=== PATIENT | female | born 1940 | race Caucasian/White ===

== ENCOUNTER 2017-09-30 10:20 | Inpatient (IN) | payer MEDICARE ==
[~2017-09-30] VITALS: Ht 177.8 cm; Wt 87.7 kg
[2017-09-30] VITALS (12 sets, daily range): BP systolic 103–157; BP diastolic 67–90; PULSE 107–130; RESP 14–20; TEMP 99.2–99.8; O2SAT 90–96
[~2017-09-30 10:20] MED LIST: APIX5TAB PO; CARD180C5 PO; CIPR-9 PO; HYDR-3516 PO; METF500T PO; METR-1 PO; PAXI20TA PO; SITA50 PO
--- NOTE | 2017-09-30 10:38 | PD ---
HPI Chief Complaint: Respiratory Symptoms Time Seen by Provider: 10:36 Travel History International Travel<30 days: No Contact w/Intl Traveler<30days: No Traveled to known affect area: No History of Present Illness HPI 76-year-old female is complaining of in the nose and cough. She says is quite a severe cough at times she also says she been having tightness in her chest off and on for several days. It is substernal chest tightness that comes on even when she is not coughing. She does have a history of pleurisy. She has never smoked. She had a nonproductive cough on Saturday and Saturday. She does have a history of atrial fib has seen Dr. Finch in the past. She is on Eliquis and takes Cardizem 180 daily though she did not take it today because she was a bit nauseated this morning PFSH Past Medical History Arthritis: Yes Atrial Fibrillation: Yes Autoimmune Disease: No Blood Disorders: No Anxiety: Yes Depression: Yes Cancer: Yes (SUDARSHAN BREAST--MASTECTOMIES AND CHEMO AFTER ) Cardiovascular Problems: Yes (ATRIAL FIBRILLATION) Chemotherapy: Yes ( & ) Cerebrovascular Accident: Yes Diabetes: Yes (TYPE II) Diminished Hearing: No Endocrine: Yes Genitourinary: No Hepatitis: No Hiatal Hernia: No Hypertension: Yes Immune Disorder: No Musculoskeletal: Yes (ARTHRITIS) Neurologic: Yes (S/P STROKE, RESID. NUMBNESS RIGHT FINGER TIPS, RIGHT LIP CORNER) Psychiatric: No Reproductive: No Respiratory: No Thyroid Disease: No Past Surgical History Abdominal Surgery: No AICD: No Cardiac Surgery: No Ear Surgery: No Endocrine Surgery: No Eye Surgery: No Genitourinary Surgery: No Gynecologic Surgery: Yes (HYSTERECTOMY 1982) Hysterectomy: Yes Joint Replacement: Yes (KNEES) Oral Surgery: No Pacemaker: No Thoracic Surgery: Yes (BILATERAL MASTECTOMIES 1990,1997) Other Surgery: Yes (BILATERAL MASTECTOMY) Social History Alcohol Use: No Tobacco Use: No Substance Use: No Allergies-Medications (Allergen,Severity, Reaction): Coded Allergies: penicillin G (Verified Allergy, Severe, RASH, 09/30/17) celecoxib (Verified Allergy, Mild, Swelling, 09/30/17) rofecoxib (Verified Allergy, Mild, SWELLING AND RASH, 09/30/17) warfarin (Verified Allergy, Unknown, RASH, 4/16/18) Reported Meds & Prescriptions Reported Meds & Active Scripts Active Cardizem CD 24 HR (Diltiazem CD 24 HR) 180 Mg Caper 180 Mg PO DAILY Reported Lasix (Furosemide) 20 Mg Tab 20 Mg PO DAILY PRN Paroxetine (Paroxetine HCl) 20 Mg Tab 20 Mg PO DAILY Metformin (Metformin HCl) 500 Mg Tab 500 Mg PO BID With a meal Januvia (Sitagliptin Phosphate) Unknown Strength Tab 100 Mg PO DAILY Eliquis (Apixaban) 5 Mg Tab 5 Mg PO BID Review of Systems General / Constitutional: No: Fever, Chills Eyes: No: Diploplia, Blurred Vision HENT: No: Headaches, Vertigo Cardiovascular: Positive: Chest Pain or Discomfort, No: Palpitations Respiratory: Positive: Cough, Shortness of Breath Gastrointestinal: No: Vomiting, Diarrhea Genitourinary: No: Urgency, Frequency Musculoskeletal: No: Myalgias Skin: No Rash Neurologic: No: Dizziness Endocrine: No: Heat Intolerance, Cold Intolerance Hematologic/Lymphatic: No: Easy Bruising Physical Exam Narrative GENERAL: Well-developed female. Heart rate is 140 and irregular SKIN: Focused skin assessment warm/dry. HEAD: Atraumatic. Normocephalic. EYES: Pupils equal and round. No scleral icterus. No injection or drainage. ENT: No nasal bleeding or discharge. Mucous membranes pink and moist. NECK: Trachea midline. No JVD. CARDIOVASCULAR: Rapid irregularrate and rhythm. No murmur appreciated. RESPIRATORY: No accessory muscle use. There are some basal rales. Breath sounds equal bilaterally. GASTROINTESTINAL: Abdomen soft, non-tender, nondistended. Hepatic and splenic margins not palpable. MUSCULOSKELETAL: No obvious deformities. No clubbing. No cyanosis. No edema. NEUROLOGICAL: Awake and alert. No obvious cranial nerve deficits. Motor grossly within normal limits. Normal speech. PSYCHIATRIC: Appropriate mood and affect; insight and judgment normal. Data Data Last Documented VS Vital Signs Date Time Temp Pulse Resp B/P (MAP) Pulse Ox O2 Delivery O2 Flow Rate FiO2 09/30/17 11:35 130 18 134/84 (101) 95 Nasal Cannula 2.00 09/30/17 10:23 99.8 Orders Orders Electrocardiogram (09/30/17 10:36) Complete Blood Count With Diff (09/30/17 10:36) Basic Metabolic Panel (Bmp) (4/16/18 10:36) Troponin I (09/30/17 10:36) B-Type Natriuretic Peptide (09/30/17 10:36) Prothrombin Time / Inr (Pt) (09/30/17 10:36) Act Partial Throm Time (Ptt) (09/30/17 10:36) Urinalysis - C+S If Indicated (09/30/17 10:36) Magnesium (Mg) (09/30/17 10:36) Chest, Single Ap (09/30/17 10:36) Furosemide Inj (Lasix Inj) (09/30/17 11:45) Diltiazem Inj (Cardizem Inj) (09/30/17 11:45) Diltiazem Inj (Cardizem Inj) (09/30/17 11:45) Sodium Chloride 0.9% Flush (Ns Flush) (09/30/17 11:45) Labs Laboratory Tests Test 09/30/17 10:55 White Blood Count 5.5 TH/MM3 Red Blood Count 4.95 MIL/MM3 Hemoglobin 14.0 GM/DL Hematocrit 42.8 % Mean Corpuscular Volume 86.6 FL Mean Corpuscular Hemoglobin 28.3 PG Mean Corpuscular Hemoglobin Concent 32.7 % Red Cell Distribution Width 13.2 % Platelet Count 177 TH/MM3 Mean Platelet Volume 9.2 FL Neutrophils (%) (Auto) 67.7 % Lymphocytes (%) (Auto) 21.6 % Monocytes (%) (Auto) 7.5 % Eosinophils (%) (Auto) 0.6 % Basophils (%) (Auto) 2.6 % Neutrophils # (Auto) 3.8 TH/MM3 Lymphocytes # (Auto) 1.2 TH/MM3 Monocytes # (Auto) 0.4 TH/MM3 Eosinophils # (Auto) 0.0 TH/MM3 Basophils # (Auto) 0.1 TH/MM3 CBC Comment DIFF FINAL Differential Comment Prothrombin Time 11.4 SEC Prothromb Time International Ratio 1.1 RATIO Activated Partial Thromboplast Time 32.0 SEC Blood Urea Nitrogen 11 MG/DL Creatinine 0.80 MG/DL Random Glucose 140 MG/DL Calcium Level 8.4 MG/DL Magnesium Level 2.0 MG/DL Sodium Level 133 MEQ/L Potassium Level 4.3 MEQ/L Chloride Level 100 MEQ/L Carbon Dioxide Level 24.6 MEQ/L Anion Gap 8 MEQ/L Estimat Glomerular Filtration Rate 70 ML/MIN Troponin I 0.04 NG/ML B-Type Natriuretic Peptide 507 PG/ML MDM Medical Decision Making Medical Screen Exam Complete: Yes Emergency Medical Condition: Yes Medical Record Reviewed: Yes Differential Diagnosis Differential includes bronchitis, pneumonia, CHF Narrative Course BNP Is 507. The troponin is 0.04. Her heart rate has been sustained around 140 -150. She was given [facility] CD but it has normal affect. I have discussed the case with Dr. Finch. He recommends the patient be transferred to the main campus on the [facility] drip Diagnosis Primary Impression: Rapid atrial fibrillation Additional Impression: Congestive heart failure Admitting Information Admitting Physician Requests: Admit Anam Barrios MD Sep 30, 2017 10:38
[2017-09-30] MEDS ORDERED: FURO1TAB62 PO (10:45)
[2017-09-30] MEDS ORDERED: PARO20TA2 PO (10:45)
[2017-09-30 11:07] LABS: AUTOMATED NEUTROPHIL # 3.8 TH/MM3 (1.8-7.7); BASOPHIL # 0.1 TH/MM3 (0-0.2); BASOPHIL % 2.6 % (0.0-2.0); EOSINOPHIL % 0.6 % (0.0-4.0); HEMATOCRIT 42.8 % (35.0-46.0); LYMPH % 21.6 % (9.0-44.0); LYMPHOCYTE # 1.2 TH/MM3 (1.0-4.8); MEAN CELL VOLUME 86.6 FL (80.0-100.0); MEAN CORPUSCULAR HEMOGLOBIN 28.3 PG (27.0-34.0); MEAN CORPUSCULAR HGB CONC 32.7 % (32.0-36.0); MEAN PLATELET VOLUME 9.2 FL (7.0-11.0); MONO % 7.5 % (0.0-8.0); MONOCYTE # 0.4 TH/MM3 (0-0.9); NEUT % 67.7 % (16.0-70.0); PLATELET COUNT 177 TH/MM3 (150-450); RED BLOOD COUNT 4.95 MIL/MM3 (4.00-5.30); RED CELL DISTRIBUTION WIDTH 13.2 % (11.6-17.2); WHITE BLOOD COUNT 5.5 TH/MM3 (4.0-11.0)
[2017-09-30 11:17] LABS: INTERNATIONAL NORMALIZED RATIO 1.1 RATIO; PROTHROMBIN TIME - PATIENT 11.4 SEC (9.8-11.6)
[2017-09-30 11:18] LABS: BICARBONATE 24.6 MEQ/L (21.0-32.0); CALCIUM 8.4 MG/DL (8.5-10.1)
--- NOTE | 2017-09-30 11:21 | RADRPT ---
EXAM DATE/TIME: 09/30/2017 10:43 [facility] COMPARISON: CHEST SINGLE AP, April 26, 2016, 17:37. INDICATIONS : Cough MEDICAL HISTORY : Hypertension. SURGICAL HISTORY : None. ENCOUNTER: Initial ACUITY: 1 day PAIN SCORE: 0/10 LOCATION: chest FINDINGS: There is cardiomegaly with moderate interstitial edema and bibasilar partial changes suspicious for c ongestive failure. Superimposed inflammatory process cannot be entirely excluded. CONCLUSION: Moderate interstitial edema likely congestive failure. Markus Mittal MD FACR on September 30, 2017 at 11:19 Board Certified Radiologist. This report was verified electronically.
[2017-09-30 11:22] LABS: CREATININE 0.8 MG/DL (0.50-1.00)
[2017-09-30 11:27] LABS: TROPONIN I 0.04 NG/ML (0.02-0.05)
[2017-09-30] MEDS ORDERED: SODIUM CHLORIDE 0.9% FLUSH 10 ML FLUSH IV FLUSH PRN ×2 (11:45→12:30)
[2017-09-30] MEDS ORDERED: DILTIAZEM HCL 25 MG/5 ML VIAL IV PUSH ONE (11:45)
[2017-09-30] MEDS ORDERED: DILTIAZEM INJ 125 MG in SODIUM CHLORIDE 0.9% INJ 100 ML IV PRN (11:45)
[2017-09-30] MEDS ORDERED: FUROSEMIDE 20 MG/2 ML VIAL IV PUSH ONE ×2 (11:45→15:30)
[2017-09-30] MEDS ORDERED: NALOXONE HCL 0.4 MG/ML AMP IV PUSH PRN (12:30)
[2017-09-30] MEDS ORDERED: ACETAMINOPHEN 325 MG TAB PO PRN (12:30)
[2017-09-30] MEDS ORDERED: ONDANSETRON HCL 4 MG/2 ML VIAL IVP PRN (12:30)
[2017-09-30] MEDS ORDERED: MAGNESIUM HYDROXIDE SUSP 30 ML CUP PO PRN (12:30)
--- NOTE | 2017-09-30 15:11 | HHI.HP ---
[facility] Jim Alva MD Admission Diagnosis RAPID ATRIAL FIBRILLATION, CHF Diagnoses: (1) Rapid atrial fibrillation (2) Congestive heart failure (3) Atrial fibrillation with RVR Chief Complaint: Nonproductive cough Shortness of breath Travel History International Travel<30 Days: No Contact w/Intl Traveler <30 Da: No Traveled to Known Affected Are: No History of Present Illness This is a pleasant 76-year-old female patient with a known medical history of atrial fibrillation who presented to the ED with complaints of cough and worsening shortness of breath 2 weeks. Patient states that roughly 2 weeks ago she developed a nonproductive cough with intermittent tightness in her chest. Patient states that she noticed tightness in her chest after her cough, states she began to feel better after a week and now has continued. She denies any recent illness including fever, chills, abdominal pain, nausea, vomiting, diarrhea dysuria. She denies any history or current tobacco use. Denies any recent antibiotic use or steroids. Does admit to decrease in appetite. Follows with Dr. Finch, cardiology, for her atrial fibrillation. She is on Eliquis and Cardizem which she took this morning. Patient denies any recent echocardiogram. PCP is Dr. Alva. At the time of assessment patient is requiring 4 L nasal cannula, is on a Cardizem IV drip for atrial fibrillation RVR, heart rate 120s. BNP 507. Denies any history of pulmonary disease. Review of Systems Constitutional: DENIES: Fatigue, Fever, Chills Eyes: DENIES: Blurred vision, Diplopia Respiratory: COMPLAINS OF: Cough, Shortness of breath, DENIES: Sputum production Cardiovascular: DENIES: Chest pain, Palpitations Gastrointestinal: DENIES: Abdominal pain, Black stools, Bloody stools, Constipation, Diarrhea, Nausea, Vomiting Musculoskeletal: DENIES: Joint pain Hematologic/lymphatic: DENIES: Bruising Psychiatric: COMPLAINS OF: Anxiety Except as stated in HPI: all other systems reviewed are Neg Past Family Social History Past Medical History History of atrial fibrillation Arthritis Anxiety and depression History of breast cancer with bilateral mastectomy History of CVA Diabetes type 2 Hypertension Past Surgical History Hysterectomy Bilateral knee replacement Bilateral vasectomy Left shoulder repair Cholecystectomy Reported Medications Active Cardizem CD 24 HR (Diltiazem CD 24 HR) 180 Mg Caper 180 Mg PO DAILY Reported Lasix (Furosemide) 20 Mg Tab 20 Mg PO DAILY PRN Paroxetine (Paroxetine HCl) 20 Mg Tab 20 Mg PO DAILY Metformin (Metformin HCl) 500 Mg Tab 500 Mg PO BID With a meal Januvia (Sitagliptin Phosphate) Unknown Strength Tab 100 Mg PO DAILY Eliquis (Apixaban) 5 Mg Tab 5 Mg PO BID Allergies: Coded Allergies: penicillin G (Verified Allergy, Severe, RASH, 09/30/17) celecoxib (Verified Allergy, Mild, Swelling, 09/30/17) rofecoxib (Verified Allergy, Mild, SWELLING AND RASH, 09/30/17) warfarin (Verified Allergy, Unknown, RASH, 09/30/17) Active Ordered Medications Current Medications Medications (Trade) Dose Ordered Sig/Kari Route Start Time Stop Time Status Last Admin Diltiazem HCl 125 mg/Sodium Chloride 125 ml @ 5 mls/hr TITRATE PRN IV 09/30/17 11:45 09/30/17 11:59 (NS Flush) 2 ml UNSCH PRN IV FLUSH 09/30/17 12:30 (NS Flush) 2 ml BID IV FLUSH 09/30/17 21:00 (Tylenol) 650 mg Q4H PRN PO 09/30/17 12:30 (Zofran Inj) 4 mg Q6H PRN IVP 09/30/17 12:30 (Narcan Inj) 0.4 mg UNSCH PRN IV PUSH 09/30/17 12:30 (Milk Of Magnesia Liq) 30 ml Q12H PRN PO 09/30/17 12:30 Family History Paternal medical history significant for CHF and diabetes. Social History Patient denies any tobacco use, alcohol use. Or illicit drug use. Physical Exam Vital Signs Vital Signs Date Time Temp Pulse Resp B/P (MAP) Pulse Ox O2 Delivery O2 Flow Rate FiO2 09/30/17 14:00 126 18 144/68 (93) 95 Nasal Cannula 2.00 09/30/17 13:30 130 18 156/67 (96) 94 Nasal Cannula 2.00 09/30/17 13:00 116 18 142/76 (98) 95 Nasal Cannula 4.00 09/30/17 13:00 114 16 95 Nasal Cannula 4.00 09/30/17 12:30 128 18 149/86 (107) 96 Nasal Cannula 2.00 09/30/17 12:00 122 18 133/74 (93) 93 Nasal Cannula 2.00 09/30/17 11:59 123 133/74 09/30/17 11:35 130 18 134/84 (101) 95 Nasal Cannula 2.00 09/30/17 11:15 94 Nasal Cannula 2.00 09/30/17 11:00 132 18 92 Room Air 09/30/17 10:23 151/90 (110) 09/30/17 10:23 99.8 118 16 90 Physical Exam GENERAL: Well-developed, well-nourished patient in NAD. On supplemental O2. SKIN: Warm and dry. No rash. HEAD: Normocephalic. Atraumatic. EYES: Pupils equal and round. No scleral icterus. No injection or drainage. ENT: No nasal bleeding or discharge. Mucous membranes pink and moist. NECK: Supple. Trachea midline. CARDIOVASCULAR: Irregularly irregular rhythm. RESPIRATORY: No accessory muscle use. Diminished breath sounds posterior lower lobes. Breath sounds equal bilaterally. GASTROINTESTINAL: Abdomen soft, non-tender, nondistended. Normoactive bowel sounds x4. MUSCULOSKELETAL: No obvious deformities. Extremities without clubbing, cyanosis , or edema. NEUROLOGICAL: Awake and alert. No obvious cranial nerve deficits. Motor grossly within normal limits. 5/5 muscle strength in bilateral upper and lower extremities. Normal speech. PSYCHIATRIC: Appropriate mood and affect; insight and judgment normal. Laboratory Laboratory Tests Test 09/30/17 10:55 White Blood Count 5.5 Red Blood Count 4.95 Hemoglobin 14.0 Hematocrit 42.8 Mean Corpuscular Volume 86.6 Mean Corpuscular Hemoglobin 28.3 Mean Corpuscular Hemoglobin Concent 32.7 Red Cell Distribution Width 13.2 Platelet Count 177 Mean Platelet Volume 9.2 Neutrophils (%) (Auto) 67.7 Lymphocytes (%) (Auto) 21.6 Monocytes (%) (Auto) 7.5 Eosinophils (%) (Auto) 0.6 Basophils (%) (Auto) 2.6 Neutrophils # (Auto) 3.8 Lymphocytes # (Auto) 1.2 Monocytes # (Auto) 0.4 Eosinophils # (Auto) 0.0 Basophils # (Auto) 0.1 CBC Comment DIFF FINAL Differential Comment Prothrombin Time 11.4 Prothromb Time International Ratio 1.1 Activated Partial Thromboplast Time 32.0 Blood Urea Nitrogen 11 Creatinine 0.80 Random Glucose 140 Calcium Level 8.4 Magnesium Level 2.0 Sodium Level 133 Potassium Level 4.3 Chloride Level 100 Carbon Dioxide Level 24.6 Anion Gap 8 Estimat Glomerular Filtration Rate 70 Troponin I 0.04 B-Type Natriuretic Peptide 507 Result Diagram: 09/30/17 1055 09/30/17 1055 Imaging Last Impressions Chest X-Ray 09/30/17 1036 Signed Impressions: Service Date/Time: Saturday, September 30, 2017 10:43 - CONCLUSION: Moderate interstitial edema likely congestive failure. Markus Mittal MD FACR Septic Shock Reassessment Septic shock perfusion: reassessment completed Caprini VTE Risk Assessment Caprini VTE Risk Assessment: Mod/High Risk (score >= 2) Caprini Risk Assessment Model Point Value = 1 Point Value = 2 Point Value = 3 Point Value = 5 Age 41-60 Minor surgery BMI > 25 kg/m2 Swollen legs Varicose veins or History of unexplained or recurrent spontaneous Oral contraceptives or hormone replacement Sepsis (< 1 month) Serious lung disease, including pneumonia (< 1 month) Abnormal pulmonary function Acute myocardial infarction Congestive heart failure (< 1 month) History of inflammatory bowel disease Medical patient at bed rest Age 61-74 Arthroscopic surgery Major open surgery (> 45 min) Laparoscopic surgery (> 45 min) Malignancy Confined to bed (> 72 hours) Immobilizing plaster cast Central venous access Age >= 75 History of VTE Family history of VTE Factor V Leiden Prothrombin [id number] Lupus anticoagulant Anticardiolipin antibodies Elevated serum homocysteine Heparin-induced thrombocytopenia Other congenital or acquired thrombophilia Stroke (< 1 month) Elective arthroplasty Hip, pelvis, or leg fracture Acute spinal cord injury (< 1 month) Prophylaxis Regimen Total Risk Factor Score Risk Level Prophylaxis Regimen 0-1 Low Early ambulation 2 Moderate Order ONE of the following: *Sequential Compression Device (SCD) *Heparin 5000 units SQ BID 3-4 Higher Order ONE of the following medications: *Heparin 5000 units SQ TID *Enoxaparin/Lovenox 40 mg SQ daily (WT < 150 kg, CrCl > 30 mL/min) *Enoxaparin/Lovenox 30 mg SQ daily (WT < 150 kg, CrCl > 10-29 mL/min) *Enoxaparin/Lovenox 30 mg SQ BID (WT < 150 kg, CrCl > 30 mL/min) AND/OR *Sequential Compression Device (SCD) 5 or more Highest Order ONE of the following medications: *Heparin 5000 units SQ TID (Preferred with Epidurals) *Enoxaparin/Lovenox 40 mg SQ daily (WT < 150 kg, CrCl > 30 mL/min) *Enoxaparin/Lovenox 30 mg SQ daily (WT < 150 kg, CrCl > 10-29 mL/min) *Enoxaparin/Lovenox 30 mg SQ BID (WT < 150 kg, CrCl > 30 mL/min) AND *Sequential Compression Device (SCD) Assessment and Plan Problem List: (1) Atrial fibrillation with RVR ICD Code: I48.91 - Unspecified atrial fibrillation Status: Acute (2) Rapid atrial fibrillation ICD Code: I48.91 - Unspecified atrial fibrillation Status: Acute (3) Congestive heart failure ICD Code: I50.9 - Heart failure, unspecified Status: Acute Assessment and Plan This is a pleasant 76-year-old female patient with a known medical history of atrial fibrillation who presented to the ED with complaints of cough and worsening shortness of breath 2 weeks. Atrial fibrillation RVR History of atrial fibrillation on Eliquis for anticoagulation - EKG reviewed showing atrial fibrillation with RVR, heart rate in the 140s. - Patient will be transferred to ICU for closer monitoring. Continue on a Cardizem IV drip per protocol. - Consult placed cardiology, patient's social sciences chair is Dr. Finch, appreciate further input recommendations. - Continue cardiac telemetry, monitor for any arrhythmias. - Will continue Eliquis. Congestive heart failure exacerbation, unspecified type. - Chest x-ray reviewed showing moderate interstitial edema likely congestive failure. Follow CT pulmonary angiogram. - BNP 507. No recent echocardiogram documented. Echocardiogram ordered and pending, follow. - Patient was given IV Lasix [address] on Lasix 20 mg IV twice daily. Monitor intake and output closely. Follow clinically. - Supplemental O2 as needed, patient is requiring 4 L nasal cannula, with oxygen saturations documented at 94%. Acute respiratory failure with hypoxemia and need for supplemental O2 Likely secondary to congestive heart failure exacerbation. - Chest x-ray as above. - Requiring 4 L nasal cannula at this time. Titrate as needed. - Patient does not have any known underlying pulmonary disease. Although she is anticoagulated on Eliquis, a PE should be considered as a cause for her increased need for supplemental O2. - Will obtain a CT pulmonary angiogram, follow. - Supportive care. Type 2 diabetes mellitus, chronic: We will hold home medications. Accu-Chek before meals at bedtime, sliding scale, cover as needed. Monitor blood sugar trends. DVT prophylaxis: SCDs. Eliquis. Physician Certification 2 Midnight Certification Type: Admission for Inpatient Services Order for Inpatient Services The services are ordered in accordance with Medicare regulations or non- Medicare payer requirements, as applicable. In the case of services not specified as inpatient-only, they are appropriately provided as inpatient services in accordance with the 2-midnight benchmark. Estimated LOS (days): 3 3 days is the estimated time the patient will need to remain in the hospital, assuming treatment plan goals are met and no additional complications. Post-Hospital Plan: Not yet determined Swetha Alegria Sep 30, 2017 15:10
[2017-09-30] MEDS ORDERED: DEXTROSE 50% IN WATER 50 ML VIAL(D50) IV PUSH PRN (15:30)
[2017-09-30] MEDS ORDERED: GLUCAGON 1 MG/ML VIAL OTHER PRN (15:30)
[2017-09-30] MEDS ORDERED: IOHEXOL 350 MG/ML 10 ML VIAL (for RAD DIAG) IVCONTRAST ONE (16:47)
--- NOTE | 2017-09-30 16:55 | RADRPT ---
EXAM DATE/TIME: 09/30/2017 16:29 [facility] COMPARISON: No previous studies available for comparison. INDICATIONS : Cough with worsening shortness of breath. IV CONTRAST: 65 cc Omnipaque 350 (iohexol) IV RADIATION DOSE: 14.62 CTDIvol (mGy) MEDICAL HISTORY : Cerebrovascular disease. Hypertension. Carcinoma, breast.Diabetes. SURGICAL HISTORY : Mastectomy, bilateral. Hysterectomy. ENCOUNTER: Initial ACUITY: 2 days PAIN SCALE: 0/10 LOCATION: chest TECHNIQUE: Volumetric scanning of the chest was performed using a pulmonary embolism protocol MIP images were re constructed. Using automated exposure control and adjustment of the mA and/or kV according to patien t size, radiation dose was kept as low as reasonably achievable to obtain optimal diagnostic quality images. DICOM format image data is available electronically for review and comparison. Follow-up recommendations for detected pulmonary nodules are based at a minimum on nodule size and pa tient risk factors according to Fleischner Society Guidelines. FINDINGS: Mild interstitial edema is present with small bilateral pleural effusions. The largest on the right occupies approximately 1/4 of the right hemithorax. There is good visualization central pulmonary vessels. There is no central pulmonary emboli. There is no pericardial effusion. There is no axillary mediastinal adenopathy Portal there is very identified are free of focal defects. CONCLUSION: Mild to moderate congestive failure No central pulmonary emboli . Markus Mittal MD FACR on September 30, 2017 at 16:50 Board Certified Radiologist. This report was verified electronically.
[2017-09-30 16:57] LABS: BILIRUBIN, URINE NEG (NEG); BLOOD, URINE NEG (NEG); GLUCOSE,URINE NEG (NEG); KETONE, URINE NEG (NEG); NITRITE,URINE NEG (NEG); URINE LEUKOCYTE ESTERASE NEG (NEG)
[2017-09-30] MEDS: FUROSEMIDE 20 MG/2 ML VIAL IV PUSH SCH (17:00)
[2017-09-30] MEDS: INSULIN ASPART SUPPLEMENTAL SCALE SQ SCH ×2 (17:00→21:00)
[2017-09-30 17:01] LABS: URINE COLOR STRAW (YELLW/STRAW)
[2017-09-30 17:04] LABS: AMORPHOUS SEDIMENT, URINE FEW; SQUAMOUS EPITHELIAL CELL URINE 0-5 /hpf (0-5)
--- NOTE | 2017-09-30 17:15 | EKG ---
Date Performed: 09/30/2017 Time Performed: 10:44:16 PTAGE: 76 years EKG: ATRIAL FIBRILLATION WITH RAPID VENTRICULAR RESPONSE POSSIBLE RIGHT VENTRICULAR CONDUCTION D ELAY SEPTAL MYOCARDIAL INFARCTION Since the previous tracing, no significant change noted ABNORMAL EC G PREVIOUS TRACING : 04/27/2016 05.29 DOCTOR: Teodoro Amezcua Interpretating Date/Time 09/30/2017 17:12:46
[2017-09-30] MEDS: SODIUM CHLORIDE 0.9% FLUSH 10 ML FLUSH IV FLUSH SCH (21:00)
[2017-09-30] MEDS: METFORMIN HOLD POST IV CONTRAST SCH (21:15)
[2017-09-30] MEDS: APIXABAN 5 MG TABLET PO SCH (21:28)
[2017-10-01] VITALS (24 sets, daily range): BP systolic 82–149; BP diastolic 56–84; PULSE 80–140; RESP 16–20; TEMP 97.7–100.2; O2SAT 20–98
[2017-10-01] MEDS ORDERED: FUROSEMIDE 20 MG/2 ML VIAL IV PUSH ONE (02:45)
[2017-10-01 06:09] LABS: AUTOMATED NEUTROPHIL # 3.5 TH/MM3 (1.8-7.7); BASOPHIL % 0.5 % (0.0-2.0); EOSINOPHIL % 0.9 % (0.0-4.0); HEMATOCRIT 40.9 % (35.0-46.0); HEMOGLOBIN 13.9 GM/DL (11.6-15.3); LYMPH % 21.3 % (9.0-44.0); LYMPHOCYTE # 1.1 TH/MM3 (1.0-4.8); MEAN CELL VOLUME 85.1 FL (80.0-100.0); MEAN CORPUSCULAR HEMOGLOBIN 28.9 PG (27.0-34.0); MEAN PLATELET VOLUME 9.7 FL (7.0-11.0); MONO % 7.8 % (0.0-8.0); MONOCYTE # 0.4 TH/MM3 (0-0.9); NEUT % 69.5 % (16.0-70.0); PLATELET COUNT 158 TH/MM3 (150-450); RED CELL DISTRIBUTION WIDTH 13.9 % (11.6-17.2)
[2017-10-01 06:32] LABS: BICARBONATE 29.4 MEQ/L (21.0-32.0); CALCIUM 8.1 MG/DL (8.5-10.1); CREATININE 0.78 MG/DL (0.50-1.00)
[2017-10-01] MEDS ORDERED: POTASSIUM CHLORIDE 10 MEQ CONTROLLED RELEASE TAB PO SCH (09:00)
[2017-10-01] MEDS: INSULIN ASPART SUPPLEMENTAL SCALE SQ SCH ×4 (09:23→20:57)
[2017-10-01] MEDS ORDERED: POTASSIUM CHLORIDE 20 MEQ CONTROLLED RELEASE TAB PO ONE (09:45)
[2017-10-01] MEDS ORDERED: POTASSIUM CHLORIDE 25 MEQ EFFERVESCENT TAB PO ONE (09:45)
[2017-10-01] MEDS ORDERED: DIGOXIN 0.5 MG/2 ML VIAL IV PUSH ONE (10:00)
[2017-10-01] MEDS: METOPROLOL TARTRATE 25 MG TAB PO SCH ×2 (10:12→21:51)
[2017-10-01] MEDS: SODIUM CHLORIDE 0.9% FLUSH 10 ML FLUSH IV FLUSH SCH ×2 (10:13→21:50)
[2017-10-01] MEDS: PARoxetine HCL 20 MG TAB PO SCH (10:14)
[2017-10-01] MEDS: APIXABAN 5 MG TABLET PO SCH ×2 (10:14→21:50)
--- NOTE | 2017-10-01 10:33 | PD.CONS ---
[facility] Service Cardiology Physicians-Dr. Finch Consult Requested By Dr. Ornelas Reason for Consult Afib RVR, CHF Primary Care Physician Jim Alva MD History of Present Illness Pleasant 76 year old female well known to our practice with cardiac history of atrial fibrillation on eliquis, stroke, and hyperlipidemia. She presented to [facility] ER yesterday due to cough and SOB, she states she was concerned that she had pneumonia. She reports having some tightness in her chest associated with cough. She denies any weight gain or BLE edema. Today she reports that her breathing has improved slightly. She is currently on O2 NC at 5L. She denies any current chest pain. HR continues to be elevated. (BluSeptember Rose Marie ZUNIGA) Review of Systems Consitutional: DENIES: Fatigue, Fever, Chills, Weight gain, Weight loss Eyes: DENIES: Amaurosis Fugax, Change in vision HEENT: DENIES: Lightheadedness, Change in hearing Respiratory: COMPLAINS OF: Cough, Shortness of breath Cardiovascular: COMPLAINS OF: Chest pain Gastrointestinal: COMPLAINS OF: Nausea Genitourinary: DENIES: Urinary incontinence, Difficulty voiding Integumentary: DENIES: Rash Neurologic: DENIES: Tingling or numbness, Memory problems, Poor Balance, Stroke symptoms Musculoskeletal: DENIES: Joint pain, Muscle pain, Limited range of motion, Back pain Psychiatric: DENIES: Anxiety, Depression, Sleep disturbances Hematologic: DENIES: Bruising tendencies, Bleeding tendencies Endocrine: DENIES: Weight gain, Weight loss, Thyroid disease (BluSally Rose Marie ZUNIGA) Past Family Social History Allergies: Coded Allergies: penicillin G (Verified Allergy, Severe, RASH, 09/30/17) celecoxib (Verified Allergy, Mild, Swelling, 09/30/17) rofecoxib (Verified Allergy, Mild, SWELLING AND RASH, 09/30/17) warfarin (Verified Allergy, Unknown, RASH, 09/30/17) Past Medical History Atrial fibrillation Stroke HTN PVD Hyperlipidemia Breast Cancer Past Surgical History Laproscopic cholecystectomy 2015 Bilateral mastectomy 1996 Knee replacement 1992, 1995 Hysterectomy 1982 Reported Medications Reported Meds & Active Scripts Active Cardizem CD 24 HR (Diltiazem CD 24 HR) 180 Mg Caper 180 Mg PO DAILY Reported Lasix (Furosemide) 20 Mg Tab 20 Mg PO DAILY PRN Paroxetine (Paroxetine HCl) 20 Mg Tab 20 Mg PO DAILY Metformin (Metformin HCl) 500 Mg Tab 500 Mg PO BID With a meal Januvia (Sitagliptin Phosphate) Unknown Strength Tab 100 Mg PO DAILY Eliquis (Apixaban) 5 Mg Tab 5 Mg PO BID Active Ordered Medications Current Medications Medications (Trade) Dose Ordered Sig/Kari Route Start Time Stop Time Status Last Admin Diltiazem HCl 125 mg/Sodium Chloride 125 ml @ 5 mls/hr TITRATE PRN IV 09/30/17 11:45 09/30/17 11:59 (NS Flush) 2 ml UNSCH PRN IV FLUSH 09/30/17 12:30 (NS Flush) 2 ml BID IV FLUSH 09/30/17 21:00 (Tylenol) 650 mg Q4H PRN PO 09/30/17 12:30 (Zofran Inj) 4 mg Q6H PRN IVP 09/30/17 12:30 (Narcan Inj) 0.4 mg UNSCH PRN IV PUSH 09/30/17 12:30 (Milk Of Magnesia Liq) 30 ml Q12H PRN PO 09/30/17 12:30 (Eliquis) 5 mg BID PO 09/30/17 21:00 09/30/17 21:28 (Paxil) 20 mg DAILY PO 10/01/17 09:00 (D50w (Vial) Inj) 50 ml UNSCH PRN IV PUSH 09/30/17 15:30 (Glucagon Inj) 1 mg UNSCH PRN OTHER 09/30/17 15:30 (NovoLOG SUPPLEMENTAL SCALE) 1 ACHS SLIDING SCALE SQ 09/30/17 17:00 10/01/17 09:23 (Lasix Inj) 20 mg BID@,18 IV PUSH 09/30/17 18:00 Future Hold (KCl) 10 meq DAILY PO 10/01/17 09:00 Future Hold Miscellaneous Information HOLD METFORMIN FOR... Q24H .XX 09/30/17 21:15 10/02/17 21:14 (Lopressor) 25 mg Q12HR PO 10/01/17 09:45 Family History Mother and father Social History Non-smoker Denies ETOH use (Blu,Sally ZUNIGA) Physical Exam Vital Signs Vital Signs Date Time Temp Pulse Resp B/P (MAP) Pulse Ox O2 Delivery O2 Flow Rate FiO2 4/17/18 09:10 95 Nasal Cannula 5.00 10/01/17 09:08 96 Nasal Cannula 5.00 10/01/17 09:00 126 10/01/17 08:00 98 Non-Rebreather 10/01/17 08:00 140 10/01/17 07:00 112 10/01/17 05:00 98.8 116 20 128/84 (99) 96 10/01/17 04:08 125 10/01/17 02:30 92 Non-Rebreather 15.00 10/01/17 01:30 92 Simple Mask 10.00 10/01/17 01:00 100.2 100 20 149/79 (102) 92 10/01/17 00:07 116 09/30/17 20:15 99.2 113 20 127/75 (92) 92 09/30/17 19:38 09/30/17 18:35 107 18 118/68 (85) 94 Nasal Cannula 4.00 09/30/17 17:00 109 16 95 Nasal Cannula 4.00 09/30/17 16:30 111 16 157/75 (102) 95 Nasal Cannula 2.00 09/30/17 15:30 108 17 114/74 (87) 96 Nasal Cannula 2.00 09/30/17 14:30 114 16 103/74 (84) 94 Nasal Cannula 2.00 09/30/17 14:00 126 18 144/68 (93) 95 Nasal Cannula 2.00 09/30/17 13:30 130 18 156/67 (96) 94 Nasal Cannula 2.00 09/30/17 13:00 116 18 142/76 (98) 95 Nasal Cannula 4.00 09/30/17 13:00 114 16 95 Nasal Cannula 4.00 09/30/17 12:30 128 14 149/86 (107) 96 Nasal Cannula 2.00 09/30/17 12:00 122 18 133/74 (93) 93 Nasal Cannula 2.00 09/30/17 11:59 123 133/74 09/30/17 11:35 130 16 134/84 (101) 95 Nasal Cannula 2.00 09/30/17 11:15 94 Nasal Cannula 2.00 09/30/17 11:00 132 18 92 Room Air 09/30/17 10:23 151/90 (110) 09/30/17 10:23 99.8 118 16 90 Physical Exam GENERAL: elderly female, sitting comfortably in chair, on oxygen SKIN: Warm and dry. HEAD: Atraumatic. Normocephalic. EYES: No injection or drainage. ENT: No nasal bleeding or discharge. Mucous membranes pink and moist. NECK: Trachea midline. No JVD. CARDIOVASCULAR: Irregular, rapid RESPIRATORY: diminished throughout, on NC O2 @ 5L GASTROINTESTINAL: Abdomen soft, non-tender, nondistended. Hepatic and splenic margins not palpable. MUSCULOSKELETAL: Extremities without clubbing, cyanosis, or edema. No obvious deformities. NEUROLOGICAL: Awake and alert. No obvious cranial nerve deficits. Motor grossly within normal limits. Five out of 5 muscle strength in the arms and legs. Normal speech. PSYCHIATRIC: Appropriate mood and affect; insight and judgment normal. Laboratory Laboratory Tests Test 09/30/17 10:55 09/30/17 16:50 10/01/17 05:18 White Blood Count 5.5 5.0 Red Blood Count 4.95 4.80 Hemoglobin 14.0 13.9 Hematocrit 42.8 40.9 Mean Corpuscular Volume 86.6 85.1 Mean Corpuscular Hemoglobin 28.3 28.9 Mean Corpuscular Hemoglobin Concent 32.7 34.0 Red Cell Distribution Width 13.2 13.9 Platelet Count 177 158 Mean Platelet Volume 9.2 9.7 Neutrophils (%) (Auto) 67.7 69.5 Lymphocytes (%) (Auto) 21.6 21.3 Monocytes (%) (Auto) 7.5 7.8 Eosinophils (%) (Auto) 0.6 0.9 Basophils (%) (Auto) 2.6 0.5 Neutrophils # (Auto) 3.8 3.5 Lymphocytes # (Auto) 1.2 1.1 Monocytes # (Auto) 0.4 0.4 Eosinophils # (Auto) 0.0 0.0 Basophils # (Auto) 0.1 0.0 CBC Comment DIFF FINAL DIFF FINAL Differential Comment Prothrombin Time 11.4 Prothromb Time International Ratio 1.1 Activated Partial Thromboplast Time 32.0 Blood Urea Nitrogen 11 9 Creatinine 0.80 0.78 Random Glucose 140 126 Calcium Level 8.4 8.1 Magnesium Level 2.0 Sodium Level 133 137 Potassium Level 4.3 3.1 Chloride Level 100 99 Carbon Dioxide Level 24.6 29.4 Anion Gap 8 9 Estimat Glomerular Filtration Rate 70 72 Troponin I 0.04 B-Type Natriuretic Peptide 507 Urine Collection Type CLEAN CATCH Urine Color STRAW Urine Turbidity CLEAR Urine pH 6.0 Urine Specific Morrison LESS/EQUAL 1.005 Urine Protein NEG Urine Glucose (UA) NEG Urine Ketones NEG Urine Occult Blood NEG Urine Nitrite NEG Urine Bilirubin NEG Urine Urobilinogen 0.2 Urine Leukocyte Esterase NEG Urine Squamous Epithelial Cells 0-5 Urine Amorphous Sediment FEW Microscopic Urinalysis Comment CULT NOT INDICATED Urine Collection Time 1650 (Sally Hurt) Result Diagram: 10/01/17 0518 10/01/17 0518 Imaging Last 48 hours Impressions Chest X-Ray 09/30/17 1036 Signed Impressions: Service Date/Time: Saturday, September 30, 2017 10:43 - CONCLUSION: Moderate interstitial edema likely congestive failure. Markus Mittal MD FACR CT Angiography 09/30/17 0000 Signed Impressions: Service Date/Time: Saturday, September 30, 2017 16:29 - CONCLUSION: Mild to moderate congestive failure No central pulmonary emboli . Markus Mittal MD FACR (Sally Hurt [facility]) Assessment and Plan Assessment and Plan Afib RVR CHF SOB Hypokalemia HTN Plan Telemetry shows AFib RVR, rate 130s. Continues on cardizem drip per protocol and eliquis 5 mg PO BID. Will add metoprolol 25mg PO BID for rate control. CHF, SOB improving with diuresis. Last echo was completed 12/2016 with EF of 60% , Repeat echocardiogram has been ordered. Recent potassium level 3.1, Will replace with potassium chloride. Will consider ischemic workup as outpatient. The patient was seen and evaluated by Dr. Finch who completed face to face encounter and participated in care and management of patient. (Sally Hurt) Assessment and Plan The exam, history, and the medical decision-making described in the above note were completed with the assistance of the mid-level provider. I reviewed and agree with the findings presented. I attest that I had a [id number] encounter with the patient on the same day, and personally performed and documented my assessment and findings in the medical record. Overall doing better chf better. (Jared Finch MD) Sally Hurt Oct 01, 2017 10:33 Jared Finch MD Oct 01, 2017 14:37
[2017-10-01] MEDS: FUROSEMIDE 20 MG/2 ML VIAL IV PUSH SCH ×2 (13:50→18:27)
--- NOTE | 2017-10-01 16:28 | HHI.PR ---
Subjective Remarks 76-year-old female who is currently asymptomatic but remains in atrial fibrillation with heart rates above 100. Her only complaint is that she did not get enough sleep. Objective Vitals Vital Signs Date Time Temp Pulse Resp B/P (MAP) Pulse Ox O2 Delivery O2 Flow Rate FiO2 10/01/17 16:00 115 10/01/17 15:00 103 10/01/17 15:00 98.0 104 20 111/74 (86) 20 10/01/17 15:00 96 Nasal Cannula 3.00 10/01/17 14:00 100 10/01/17 13:00 114 10/01/17 12:25 100 82/57 10/01/17 12:00 106 10/01/17 11:00 98.2 100 16 82/57 (65) 97 10/01/17 11:00 121 10/01/17 11:00 97 Nasal Cannula 4.00 10/01/17 10:00 116 10/01/17 09:10 95 Nasal Cannula 5.00 10/01/17 09:08 96 Nasal Cannula 5.00 10/01/17 09:00 126 10/01/17 08:00 97.7 97 18 120/60 (80) 98 10/01/17 08:00 98 Non-Rebreather 10/01/17 08:00 140 10/01/17 07:00 112 10/01/17 05:00 98.8 116 20 128/84 (99) 96 10/01/17 04:08 125 10/01/17 02:30 92 Non-Rebreather 15.00 10/01/17 01:30 92 Simple Mask 10.00 10/01/17 01:00 100.2 100 20 149/79 (102) 92 10/01/17 00:07 116 09/30/17 20:15 99.2 113 20 127/75 (92) 92 09/30/17 19:38 09/30/17 18:35 107 18 118/68 (85) 94 Nasal Cannula 4.00 09/30/17 17:00 109 16 95 Nasal Cannula 4.00 09/30/17 16:30 111 16 157/75 (102) 95 Nasal Cannula 2.00 I/O 09/30/17 09/30/17 09/30/17 10/01/17 10/01/17 10/01/17 06:59 14:59 22:59 06:59 14:59 22:59 Output Total 600 ml 1350 ml Balance -600 ml -1350 ml Output Urine Total 600 ml 1350 ml # Voids 2 1 Result Diagram: 10/01/17 0518 10/01/17 1134 A/P Problem List: (1) Atrial fibrillation with RVR ICD Code: I48.91 - Unspecified atrial fibrillation Status: Acute (2) Rapid atrial fibrillation ICD Code: I48.91 - Unspecified atrial fibrillation Status: Acute (3) Congestive heart failure ICD Code: I50.9 - Heart failure, unspecified Status: Acute Assessment and Plan This is a pleasant 76-year-old female presenting with A Fib w/ RVR Atrial fibrillation RVR History of atrial fibrillation on Eliquis for anticoagulation Continue on a Cardizem IV drip per protocol. Continue cardiac telemetry, monitor for any arrhythmias Metoprolol added for further rate control Appreciate cardiology consulting CHF exacerbation, dyspnea CT angiogram of chest was negative for any pulmonary embolism BNP 507. Echocardiogram pending Continue place on Lasix 20 mg IV twice daily. Monitor intake and output closely Oxygen via nasal cannula as needed to keep saturations above 94% Type 2 diabetes Sliding scale insulin coverage with Accu-Cheks Diabetic diet DVT prophylaxis SCDs. Eliquis. Pete Waite MD Oct 01, 2017 16:28
--- NOTE | 2017-10-01 17:32 | ECHRPT ---
Indication: Heart failure, unspecified CONCLUSIONS The left ventricular systolic function is severely reduced with an estimated ejection fraction in th e range of 25-30%. LV size and thickness are normal Moderate mitral valve regurgitation. Trace aortic and tricuspid valve regurgitation BP: 128 / 84 HR: 116 Rhythm: MEASUREMENTS (Male / Female) Normal Values Technical Quality:Good 2D ECHO LV Diastolic Diameter PLAX 5.7 cm 4.2 - 5.9 / 3.9 - 5.3 cm LV Systolic Diameter PLAX 5.1 cm IVS Diastolic Thickness 1.1 cm 0.6 - 1.0 / 0.6 - 0.9 cm LVPW Diastolic Thickness 1.1 cm 0.6 - 1.0 / 0.6 - 0.9 cm LV Relative Wall Thickness 0.4 RV Internal Dim ED PLAX 2.9 cm M-MODE Aortic Root Diameter MM 3.4 cm LA Systolic Diameter MM 4.4 cm LA Ao Ratio MM 1.3 AV Cusp Separation MM 1.8 cm DOPPLER AI Peak Velocity 244.0 cm/s AI Peak Gradient 23.8 mmHg AI Pressure Half Time 408.0 ms Mitral E Point Velocity 63.2 cm/s Mitral A Point Velocity 31.1 cm/s Mitral E to A Ratio 2.0 LV E' Lateral Velocity 9.1 cm/s Mitral E to LV E' Lateral Ratio 7.0 FINDINGS LEFT VENTRICLE Normal left ventricular size. Wall thickness is normal. The left ventricular systolic function is severely reduced with an estimated ejection fraction in th e range of 25-30%. RIGHT VENTRICLE Normal right ventricular size and systolic function. LEFT ATRIUM The left atrial size is mildly dilated. RIGHT ATRIUM The right atrial size is normal. ATRIAL SEPTUM Normal atrial septal thickness without atrial level shunting by limited color doppler interrogation. AORTA The aortic root and proximal ascending aorta are not well visualized. MITRAL VALVE Moderate mitral valve regurgitation. AORTIC VALVE Trileaflet aortic valve. Trace aortic valve regurgitation. TRICUSPID VALVE Structurally normal tricuspid valve. There is trace tricuspid valve regurgitation. PULMONARY VALVE Trace pulmonary valve regurgitation. VESSELS The inferior vena cava (IVC) is normal in size. PERICARDIUM There is no pericardial effusion. Brianna Argueta MD, FACC (Electronically Signed) Final Date:01 October 2017 17:31
[2017-10-01] MEDS: DILTIAZEM HCL 90 MG TAB PO SCH ×2 (18:27→21:51)
[2017-10-01] MEDS: METFORMIN HOLD POST IV CONTRAST SCH (21:15)
[2017-10-02] VITALS (32 sets, daily range): BP systolic 101–130; BP diastolic 63–79; PULSE 64–90; RESP 16–18; TEMP 97.9–98.7; O2SAT 93–98
[2017-10-02] MEDS: DILTIAZEM HCL 90 MG TAB PO SCH ×3 (06:08→17:17)
[2017-10-02] MEDS: INSULIN ASPART SUPPLEMENTAL SCALE SQ SCH ×4 (08:00→21:58)
[2017-10-02] MEDS: PARoxetine HCL 20 MG TAB PO SCH (08:54)
[2017-10-02] MEDS: METOPROLOL TARTRATE 25 MG TAB PO SCH ×2 (08:54→21:57)
[2017-10-02] MEDS: POTASSIUM CHLORIDE 10 MEQ CONTROLLED RELEASE TAB PO SCH (08:54)
[2017-10-02] MEDS: APIXABAN 5 MG TABLET PO SCH ×2 (08:54→21:57)
[2017-10-02] MEDS: FUROSEMIDE 20 MG/2 ML VIAL IV PUSH SCH ×2 (08:55→17:17)
[2017-10-02] MEDS: SODIUM CHLORIDE 0.9% FLUSH 10 ML FLUSH IV FLUSH SCH ×2 (08:55→21:00)
--- NOTE | 2017-10-02 12:22 | PD.CARD.PN ---
Subjective Subjective Remarks Pt reports feeling much better today. She is sitting up in bed eating breakfast. She says her breathing has improved significantly over the past two days. HR is controlled on current medications. She denies any chest pain. (Sally Hurt) Subjective Remarks The exam, history, and the medical decision-making described in the above note were completed with the assistance of the mid-level provider. I reviewed and agree with the findings presented. I attest that I had a [id number] encounter with the patient on the same day, and personally performed and documented my assessment and findings in the medical record. Doing better HR stable (Jared Finch MD) Objective Medications Current Medications Medications (Trade) Dose Ordered Sig/Kari Route Start Time Stop Time Status Last Admin Diltiazem HCl 125 mg/Sodium Chloride 125 ml @ 5 mls/hr TITRATE PRN IV 09/30/17 11:45 09/30/17 11:59 (NS Flush) 2 ml UNSCH PRN IV FLUSH 09/30/17 12:30 (NS Flush) 2 ml BID IV FLUSH 09/30/17 21:00 10/02/17 08:55 (Tylenol) 650 mg Q4H PRN PO 09/30/17 12:30 (Zofran Inj) 4 mg Q6H PRN IVP 09/30/17 12:30 (Narcan Inj) 0.4 mg UNSCH PRN IV PUSH 09/30/17 12:30 (Milk Of Magnesia Liq) 30 ml Q12H PRN PO 09/30/17 12:30 (Eliquis) 5 mg BID PO 09/30/17 21:00 10/02/17 08:54 (Paxil) 20 mg DAILY PO 10/01/17 09:00 10/02/17 08:54 (D50w (Vial) Inj) 50 ml UNSCH PRN IV PUSH 09/30/17 15:30 (Glucagon Inj) 1 mg UNSCH PRN OTHER 09/30/17 15:30 (NovoLOG SUPPLEMENTAL SCALE) 1 ACHS SLIDING SCALE SQ 09/30/17 17:00 10/01/17 09:23 (Lasix Inj) 20 mg BID@,18 IV PUSH 09/30/17 18:00 Future hold 10/02/17 08:55 Miscellaneous Information HOLD METFORMIN FOR... Q24H .XX 09/30/17 21:15 10/02/17 21:14 (Lopressor) 25 mg Q12HR PO 10/01/17 09:45 10/02/17 08:54 (KCl) 20 meq DAILY PO 10/02/17 09:00 10/02/17 08:54 (Cardizem) 90 mg Q6HR PO 10/01/17 18:10 10/02/17 06:08 Vital Signs / I&O Vital Signs Date Time Temp Pulse Resp B/P (MAP) Pulse Ox O2 Delivery O2 Flow Rate FiO2 10/02/17 12:06 98.2 73 18 105/79 (88) 93 10/02/17 11:25 3.00 10/02/17 10:07 93 Nasal Cannula 1.00 10/02/17 07:15 98.2 89 18 130/63 (85) 96 10/02/17 07:00 96 Nasal Cannula 2.00 10/02/17 07:00 77 10/02/17 06:06 90 18 120/71 (87) 95 10/02/17 06:00 82 10/02/17 05:00 76 10/02/17 04:07 81 10/02/17 04:00 72 10/02/17 03:03 Nasal Cannula 3.00 10/02/17 03:00 76 10/02/17 02:00 76 10/02/17 01:00 84 10/02/17 00:00 80 10/02/17 00:00 80 16 10/02/17 00:00 79 10/01/17 23:49 Nasal Cannula 3.00 10/01/17 23:00 80 10/01/17 22:00 92 10/01/17 22:00 92 10/01/17 21:00 98 10/01/17 21:00 98.7 95 20 117/56 (76) 97 10/01/17 20:00 112 10/01/17 20:00 102 10/01/17 19:42 Nasal Cannula 3.00 10/01/17 19:00 116 10/01/17 18:00 109 10/01/17 17:00 117 10/01/17 16:00 115 10/01/17 15:00 103 10/01/17 15:00 98.0 104 20 111/74 (86) 20 10/01/17 15:00 96 Nasal Cannula 3.00 10/01/17 14:00 100 10/01/17 13:00 114 10/01/17 12:25 100 82/57 I/O 10/01/17 10/01/17 10/01/17 10/02/17 10/02/17 10/02/17 06:59 14:59 22:59 06:59 14:59 22:59 Intake Total 840 ml 480 ml Output Total 1350 ml 1500 ml 700 ml Balance -1350 ml -660 ml -220 ml Intake Oral 840 ml 480 ml Output Urine Total 1350 ml 1500 ml 700 ml Physical Exam GENERAL: elderly female, in no acute distress SKIN: Warm and dry. HEAD: Atraumatic. Normocephalic. EYES: Pupils equal and round. No scleral icterus. No injection or drainage. ENT: No nasal bleeding or discharge. Mucous membranes pink and moist. NECK: Trachea midline. No JVD. CARDIOVASCULAR: irregular, controlled RESPIRATORY: diminished throughout GASTROINTESTINAL: Abdomen soft, non-tender, nondistended. Hepatic and splenic margins not palpable. MUSCULOSKELETAL: Extremities without clubbing, cyanosis, or edema. No obvious deformities. NEUROLOGICAL: Awake and alert. No obvious cranial nerve deficits. Motor grossly within normal limits. Five out of 5 muscle strength in the arms and legs. Normal speech. PSYCHIATRIC: Appropriate mood and affect; insight and judgment normal. Laboratory Last 72 hours Impressions Chest X-Ray 09/30/17 1036 Signed Impressions: Service Date/Time: Saturday, September 30, 2017 10:43 - CONCLUSION: Moderate interstitial edema likely congestive failure. Markus Mittal MD FACR CT Angiography 09/30/17 0000 Signed Impressions: Service Date/Time: Saturday, September 30, 2017 16:29 - CONCLUSION: Mild to moderate congestive failure No central pulmonary emboli . Markus Mittal MD FACR Laboratory Tests Test 10/02/17 06:11 B-Type Natriuretic Peptide 475 PG/ML (Shadeed,Sally ZUNIGA) Assessment and Plan Assessment and Plan Afib RVR CHF SOB HTN Plan Telemetry shows AFib with controlled rate. HR improved. CHF, SOB improving with diuresis. BNP continues to be elevated. Will continue with diuresis, and give lasix 40mg IV now. EF significantly reduced on echo est 25-30%, could be due to pt being in Afib RVR at the time of echo. Will plan to repeat as outpatient. BP is low. Will also consider ischemic workup as outpatient. The patient was seen and evaluated by Dr. Finch who completed face to face encounter and participated in care and management of patient. (Sally Hurt) Sally Hurt Oct 02, 2017 12:22 Jared Finch MD Oct 03, 2017 11:44
[2017-10-02] MEDS ORDERED: FUROSEMIDE 40 MG/4 ML VIAL IV PUSH ONE (12:30)
[2017-10-02] MEDS: CEPHALEXIN MONOHYDRATE 500 MG CAP PO SCH ×2 (15:49→21:00)
--- NOTE | 2017-10-02 17:17 | HHI.PR ---
Subjective Remarks Patient states that she feels comfortable now that her heart rate has returned to normal. She complains of a nonproductive cough with chills over the last 2 weeks. Objective Vitals Vital Signs Date Time Temp Pulse Resp B/P (MAP) Pulse Ox O2 Delivery O2 Flow Rate FiO2 10/02/17 12:06 98.2 73 18 105/79 (88) 93 10/02/17 11:25 3.00 10/02/17 10:07 93 Nasal Cannula 1.00 10/02/17 07:15 98.2 89 18 130/63 (85) 96 10/02/17 07:00 96 Nasal Cannula 2.00 10/02/17 07:00 77 10/02/17 06:06 90 18 120/71 (87) 95 10/02/17 06:00 82 10/02/17 05:00 76 10/02/17 04:07 81 10/02/17 04:00 72 10/02/17 03:03 Nasal Cannula 3.00 10/02/17 03:00 76 10/02/17 02:00 76 10/02/17 01:00 84 10/02/17 00:00 80 10/02/17 00:00 80 16 10/02/17 00:00 79 10/01/17 23:49 Nasal Cannula 3.00 10/01/17 23:00 80 10/01/17 22:00 92 10/01/17 22:00 92 10/01/17 21:00 98 10/01/17 21:00 98.7 95 20 117/56 (76) 97 10/01/17 20:00 112 10/01/17 20:00 102 10/01/17 19:42 Nasal Cannula 3.00 10/01/17 19:00 116 10/01/17 18:00 109 I/O 10/01/17 10/01/17 10/01/17 10/02/17 10/02/17 10/02/17 07:00 15:00 23:00 07:00 15:00 23:00 Intake Total 840 ml 480 ml Output Total 1350 ml 1500 ml 700 ml Balance -1350 ml -660 ml -220 ml Intake Oral 840 ml 480 ml Output Urine Total 1350 ml 1500 ml 700 ml Result Diagram: 10/01/17 0518 10/01/17 1134 Objective Remarks GENERAL: Well-nourished, well-developed patient. SKIN: Warm and dry. HEAD: Normocephalic. EYES: No scleral icterus. No injection or drainage. NECK: Supple, trachea midline. No JVD or lymphadenopathy. CARDIOVASCULAR: Irregular rhythm, normal rate, without murmurs, gallops, or rubs. RESPIRATORY: Breath sounds equal bilaterally. No accessory muscle use. GASTROINTESTINAL: Abdomen soft, non-tender, nondistended. EXTREMITIES: No cyanosis, or trace edema NEUROLOGICAL: Awake, alert, and oriented x 3. Non-focal. A/P Problem List: (1) Atrial fibrillation with RVR ICD Code: I48.91 - Unspecified atrial fibrillation Status: Acute (2) Rapid atrial fibrillation ICD Code: I48.91 - Unspecified atrial fibrillation Status: Acute (3) Congestive heart failure ICD Code: I50.9 - Heart failure, unspecified Status: Acute Assessment and Plan This is a pleasant 76-year-old female presenting with A Fib w/ RVR Atrial fibrillation RVR History of atrial fibrillation on Eliquis for anticoagulation Continue p.o. Cardizem and Lopressor Continue cardiac telemetry, monitor for any arrhythmias Appreciate cardiology consulting CHF exacerbation, dyspnea CT angiogram of chest was negative for any pulmonary embolism BNP 507. Echocardiogram shows ejection fraction of 30%, but cardiology feels this may be due to A. fib with RVR Plan is to repeat echocardiogram as outpatient and conduct an ischemic workup as outpatient Continue place on Lasix 20 mg IV twice daily. Monitor intake and output closely Oxygen via nasal cannula as needed to keep saturations above 94% Cough Ongoing for 2 weeks and associated with intermittent episodes of low-grade fever versus chills Possible exacerbating factor with heart rhythm Begin Keflex 500 mg twice daily Type 2 diabetes Sliding scale insulin coverage with Accu-Cheks Diabetic diet DVT prophylaxis SCDs. Eliquis. Pete Waite MD Oct 02, 2017 17:17
[2017-10-02 19:05] LABS: CALCIUM 8.3 MG/DL (8.5-10.1); CREATININE 0.98 MG/DL (0.50-1.00)
[2017-10-03] VITALS (22 sets, daily range): BP systolic 92–116; BP diastolic 58–66; PULSE 62–96; RESP 16–20; TEMP 97.8–98.9; O2SAT 93–98
[2017-10-03] MEDS: DILTIAZEM HCL 90 MG TAB PO SCH ×2 (05:08)
[2017-10-03] MEDS: INSULIN ASPART SUPPLEMENTAL SCALE SQ SCH ×3 (08:27→17:00)
[2017-10-03] MEDS: METOPROLOL TARTRATE 25 MG TAB PO SCH ×2 (08:28→19:20)
[2017-10-03] MEDS: CEPHALEXIN MONOHYDRATE 500 MG CAP PO SCH ×2 (08:28→19:20)
[2017-10-03] MEDS: SODIUM CHLORIDE 0.9% FLUSH 10 ML FLUSH IV FLUSH SCH (08:28)
[2017-10-03] MEDS: POTASSIUM CHLORIDE 10 MEQ CONTROLLED RELEASE TAB PO SCH (08:28)
[2017-10-03] MEDS: PARoxetine HCL 20 MG TAB PO SCH (08:28)
[2017-10-03] MEDS: FUROSEMIDE 20 MG/2 ML VIAL IV PUSH SCH (08:29)
[2017-10-03] MEDS: APIXABAN 5 MG TABLET PO SCH ×2 (08:29→19:20)
--- NOTE | 2017-10-03 10:34 | PD.CARD.PN ---
Subjective Subjective Remarks Pt reports feeling well today. She is sitting up in chair, on continous oxygen. Has short pause early AM, less than 2 seconds. She continues to have a cough, recently started on keflex. She denies any chest pain. (Sally Hurt) Objective Medications Current Medications Medications (Trade) Dose Ordered Sig/Kari Route Start Time Stop Time Status Last Admin Diltiazem HCl 125 mg/Sodium Chloride 125 ml @ 5 mls/hr TITRATE PRN IV 09/30/17 11:45 09/30/17 11:59 (NS Flush) 2 ml UNSCH PRN IV FLUSH 09/30/17 12:30 (NS Flush) 2 ml BID IV FLUSH 09/30/17 21:00 10/03/17 08:28 (Tylenol) 650 mg Q4H PRN PO 09/30/17 12:30 (Zofran Inj) 4 mg Q6H PRN IVP 09/30/17 12:30 (Narcan Inj) 0.4 mg UNSCH PRN IV PUSH 09/30/17 12:30 (Milk Of Magnesia Liq) 30 ml Q12H PRN PO 09/30/17 12:30 (Eliquis) 5 mg BID PO 09/30/17 21:00 10/03/17 08:29 (Paxil) 20 mg DAILY PO 10/01/17 09:00 10/03/17 08:28 (D50w (Vial) Inj) 50 ml UNSCH PRN IV PUSH 09/30/17 15:30 (Glucagon Inj) 1 mg UNSCH PRN OTHER 09/30/17 15:30 (NovoLOG SUPPLEMENTAL SCALE) 1 ACHS SLIDING SCALE SQ 09/30/17 17:00 10/03/17 08:27 (Lasix Inj) 20 mg BID@09,18 IV PUSH 09/30/17 18:00 Future hold 10/03/17 08:29 (Lopressor) 25 mg Q12HR PO 10/01/17 09:45 10/03/17 08:28 (KCl) 20 meq DAILY PO 10/02/17 09:00 10/03/17 08:28 (Cardizem) 90 mg Q6HR PO 10/01/17 18:10 10/03/17 05:08 (Keflex) 500 mg BID PO 10/02/17 15:00 10/03/17 08:28 Vital Signs / I&O Vital Signs Date Time Temp Pulse Resp B/P (MAP) Pulse Ox O2 Delivery O2 Flow Rate FiO2 10/03/17 10:00 64 10/03/17 09:00 70 10/03/17 08:00 74 10/03/17 07:00 95 Nasal Cannula 2.00 10/03/17 07:00 86 10/03/17 07:00 98.3 78 18 116/60 (78) 95 10/03/17 06:00 79 10/03/17 05:00 84 10/03/17 04:30 86 16 110/58 (75) 97 10/03/17 04:00 83 10/03/17 04:00 86 10/03/17 03:29 70 16 10/03/17 03:15 Nasal Cannula 2.00 10/03/17 03:00 72 10/03/17 02:00 78 10/03/17 01:00 72 10/03/17 00:00 72 10/03/17 00:00 62 10/02/17 23:53 Nasal Cannula 2.00 10/02/17 23:00 70 10/02/17 22:00 74 10/02/17 21:48 98.7 73 16 101/66 (78) 98 10/02/17 21:00 82 10/02/17 20:00 72 10/02/17 19:45 93 Nasal Cannula 10/02/17 19:40 74 10/02/17 19:33 Nasal Cannula 2.00 10/02/17 19:00 74 10/02/17 18:00 72 10/02/17 17:00 74 10/02/17 16:00 64 10/02/17 15:30 97.9 72 18 104/64 (77) 93 10/02/17 15:00 84 10/02/17 15:00 93 Nasal Cannula 2.00 10/02/17 13:00 76 10/02/17 12:06 98.2 73 18 105/79 (88) 93 10/02/17 12:00 70 10/02/17 11:25 3.00 10/02/17 11:00 78 10/02/17 11:00 94 Nasal Cannula 2.00 I/O 4/18/18 4/18/18 10/02/17 10/03/17 10/03/17 10/03/17 07:00 15:00 23:00 07:00 15:00 23:00 Intake Total 480 ml 600 ml 240 ml Output Total 700 ml 1200 ml 1100 ml Balance -220 ml -600 ml -860 ml Intake Oral 480 ml 600 ml 240 ml Output Urine Total 700 ml 1200 ml 1100 ml # Bowel Movements 1 1 Physical Exam GENERAL: elderly female, in no acute distress SKIN: Warm and dry. HEAD: Atraumatic. Normocephalic. EYES: No injection or drainage. ENT: No nasal bleeding or discharge. Mucous membranes pink and moist. NECK: Trachea midline. No JVD. CARDIOVASCULAR: irregular, controlled RESPIRATORY: diminished throughout, mild congestion noted, on oxygen GASTROINTESTINAL: Abdomen soft, non-tender, nondistended. Hepatic and splenic margins not palpable. MUSCULOSKELETAL: Extremities without clubbing, cyanosis, or edema. No obvious deformities. NEUROLOGICAL: Awake and alert. No obvious cranial nerve deficits. Motor grossly within normal limits. Five out of 5 muscle strength in the arms and legs. Normal speech. PSYCHIATRIC: Appropriate mood and affect; insight and judgment normal. Laboratory Laboratory Tests Test 10/02/17 18:19 Blood Urea Nitrogen 19 MG/DL Creatinine 0.98 MG/DL Random Glucose 213 MG/DL Calcium Level 8.3 MG/DL Sodium Level 134 MEQ/L Potassium Level 4.0 MEQ/L Chloride Level 99 MEQ/L Carbon Dioxide Level 28.0 MEQ/L Anion Gap 7 MEQ/L Estimat Glomerular Filtration Rate 55 ML/MIN Imaging Last 72 hours Impressions Chest X-Ray 09/30/17 1036 Signed Impressions: Service Date/Time: Saturday, September 30, 2017 10:43 - CONCLUSION: Moderate interstitial edema likely congestive failure. Markus Mittal MD [facility] Assessment and Plan Assessment and Plan Afib RVR CHF SOB HTN Plan On eliquis, no issues with bleeding. HR controlled on diltiazem and metoprolol. Had short pause on telemetry early AM, less than 2 seconds, asymptomatic. CHF, SOB improving with diuresis. Recently started on kelfex.Will switch from IV lasix to Lasix 20mg PO daily. EF significantly reduced on echo est 25-30%, could be due to pt being in Afib RVR at the time of echo. Will plan to repeat as outpatient. Will also consider ischemic workup as outpatient. She is cleared from a cardiac standpoint to DC home. Will follow up in 1 week. The patient was seen and evaluated by Dr. Finch who completed face to face encounter and participated in care and management of patient. (Sally Hurt) Assessment and Plan The exam, history, and the medical decision-making described in the above note were completed with the assistance of the mid-level provider. I reviewed and agree with the findings presented. I attest that I had a [id number] encounter with the patient on the same day, and personally performed and documented my assessment and findings in the medical record. Doing much better no cp or sob (Jared Finch MD) Sally Hurt Oct 03, 2017 10:34 Jared Finch MD Oct 03, 2017 11:46
[2017-10-03] MEDS ORDERED: DILTIAZEM-CD 240 MG CAP ER PO SCH (10:45)
[2017-10-03] MEDS ORDERED: FUROSEMIDE 20 MG TAB PO SCH ×2 (10:45→16:00)
[2017-10-03] MEDS ORDERED: OXYGENDME NAS.CANULA (11:10)
--- NOTE | 2017-10-03 11:13 | HHI.FF ---
Face to Face Verification Diagnosis: (1) Congestive heart failure (2) Atrial fibrillation with RVR (3) Diabetes mellitus (4) HTN (hypertension) Home Health Nursing Order: Medical education Signs/symptoms of disease process CHF education Oxygen administration education Nursing assessment with vital signs I have seen patient Nella Eduardo on 10/03/17. My clinical findings support the need for the requested home health care services because: Ltd mobility - disease progression Patient has SOB Deconditioned w/ increased weakness I certify that my clinical findings support that this patient is homebound because: Unsteady gait/balance Unsafe to leave home unassisted Unable to use public transportation Pete Waite MD Oct 03, 2017 11:13
[2017-10-03] MEDS ORDERED: KLOR10TA PO (15:57)
[2017-10-03] MEDS ORDERED: DILT240C44 PO (15:57)
[2017-10-03] MEDS ORDERED: CEPH500C PO (15:57)
[2017-10-03] MEDS ORDERED: METO25TA3 PO (15:57)
--- NOTE | 2017-10-04 10:15 | HHI.DS ---
Discharge Summary Admission Date Sep 30, 2017 at 11:55 Discharge Date: Oct 03, 2017 Admitting Diagnosis RAPID ATRIAL FIBRILLATION, CHF (1) Atrial fibrillation with RVR ICD Code: I48.91 - Unspecified atrial fibrillation Status: Acute (2) Rapid atrial fibrillation ICD Code: I48.91 - Unspecified atrial fibrillation Status: Acute (3) Acute systolic CHF (congestive heart failure) ICD Code: I50.21 - Acute systolic (congestive) heart failure Procedures none Brief History - From Admission This is a pleasant 76-year-old female patient with a known medical history of atrial fibrillation who presented to the ED with complaints of cough and worsening shortness of breath 2 weeks. Patient states that roughly 2 weeks ago she developed a nonproductive cough with intermittent tightness in her chest. Patient states that she noticed tightness in her chest after her cough, states she began to feel better after a week and now has continued. She denies any recent illness including fever, chills, abdominal pain, nausea, vomiting, diarrhea dysuria. She denies any history or current tobacco use. Denies any recent antibiotic use or steroids. Does admit to decrease in appetite. Follows with Dr. Finch, cardiology, for her atrial fibrillation. She is on Eliquis and Cardizem which she took this morning. Patient denies any recent echocardiogram. PCP is Dr. Alva. At the time of assessment patient is requiring 4 L nasal cannula, is on a Cardizem IV drip for atrial fibrillation RVR, heart rate 120s. BNP 507. Denies any history of pulmonary disease. CBC/BMP: 10/01/17 0518 10/02/17 1819 Significant Findings Laboratory Tests Test 10/01/17 11:34 10/02/17 06:11 10/02/17 18:19 B-Type Natriuretic Peptide 475 PG/ML (0-100) Blood Urea Nitrogen 19 MG/DL (7-18) Random Glucose 213 MG/DL (74-106) Calcium Level 8.3 MG/DL (8.5-10.1) Sodium Level 134 MEQ/L (136-145) Estimat Glomerular Filtration Rate 55 ML/MIN (>89) PE at Discharge GENERAL: Well-nourished, well-developed patient. SKIN: Warm and dry. HEAD: Normocephalic. EYES: No scleral icterus. No injection or drainage. NECK: Supple, trachea midline. No JVD or lymphadenopathy. CARDIOVASCULAR: Irregular rhythm, normal rate, without murmurs, gallops, or rubs. RESPIRATORY: Breath sounds equal bilaterally. No accessory muscle use. GASTROINTESTINAL: Abdomen soft, non-tender, nondistended. EXTREMITIES: No cyanosis, or trace edema NEUROLOGICAL: Awake, alert, and oriented x 3. Non-focal. Hospital Course 76F who presented to the ER with complaint of cough and worsening dyspnea over 2 weeks. On admission she was found to have atrial fibrillation with RVR. She was treated successfully with cardizem IV and heparin drip. She transitioned without difficulty onto PO regiment and maintained her heart rate within normal range after that. 2D ECHO showed an EF = 30% which was down from a previous ECHO EF = 60%, but cardiology felt this may be due to getting the ECHO during her A Fib with RVR episode. Cardiology suggested a repeat ECHO as an outpatient and cleared her for discharge home. She was covered for her cough with Keflex. Follow up in 1 week with cardiology. Pt Condition on Discharge: Good Discharge Disposition: Disch w/ Home Health Serv Discharge Time: <= 30 minutes Discharge Instructions DIET: Follow Instructions for: Diabetic Diet Activities you can perform: Weight Bearing as Pete Fisher MD Oct 04, 2017 10:15
== END 2017-10-03 19:27 | disposition home health service (06) | DRG 291 ==
LOC: PHED 10:20 → PHEDA 11:55 → PHEDH 15:46 → HCIS 20:00
PROVIDERS: ADMIT Family Medicine; ATTEND Family Medicine
DX: I11.0 Hypertensive heart disease with heart failure (principal); J96.01 Acute respiratory failure with hypoxia; I50.21 Acute systolic (congestive) heart failure; I48.91 Unspecified atrial fibrillation; E11.51 Type 2 diabetes mellitus with diabetic peripheral angiopathy without gangrene; F32.9 Major depressive disorder, single episode, unspecified; R05 Cough; E87.6 Hypokalemia; F41.9 Anxiety disorder, unspecified; E78.5 Hyperlipidemia, unspecified; M19.90 Unspecified osteoarthritis, unspecified site; Z96.653 Presence of artificial knee joint, bilateral; Z86.73 Personal history of transient ischemic attack (TIA), and cerebral infarction without residual deficits; Z79.84 Long term (current) use of oral hypoglycemic drugs; Z79.01 Long term (current) use of anticoagulants; Z85.3 Personal history of malignant neoplasm of breast; Z82.49 Family history of ischemic heart disease and other diseases of the circulatory system
CPT/HCPCS: 71045; 71275; 80048; 81001; 82948; 83735; 83880; 84132; 84484; 85025; 85610; 85730; 93005; 93306; 94618; 96374; 96375; J1815; J1940; Q9967

== ENCOUNTER 2017-11-18 10:31 | Day surgery (SDC) | payer MEDICARE ==
[~2017-11-18 10:31] MED LIST changes: -CARD180C5 PO; +CEPH500C PO; -CIPR-9 PO; +DILT240C44 PO; +FURO1TAB62 PO; -HYDR-3516 PO; +KLOR10TA PO; +METO25TA3 PO; -METR-1 PO; +OXYGENDME NAS.CANULA; +PARO20TA2 PO; -PAXI20TA PO
[2017-11-18] MEDS ORDERED: LACTATED RINGER'S 1000 ML IV PRN (11:15)
[2017-11-18] MEDS ORDERED: CHLORHEXIDINE GLUCONATE 2 % 1 PACK (2 CLOTHS) TOPICAL PRN (11:15)
[2017-11-18] MEDS ORDERED: POVIDONE IODINE 5% (ANTISEPSIS KIT) 4 APPLICATIONS EACH NARE PRN (11:15)
[2017-11-18] MEDS ORDERED: METOPROLOL TARTRATE 25 MG TAB PO PRN (11:15)
[2017-11-18] MEDS ORDERED: SODIUM CHLORID 0.9% 500 ML IV PRN (11:15)
[2017-11-18] MEDS ORDERED: AMIO200T PO (11:29)
[2017-11-18] MEDS ORDERED: SACU1TAB PO (11:29)
[2017-11-18] MEDS ORDERED: PROPOFOL 200 MG/20 ML AMP ONE (13:07)
--- NOTE | 2017-11-18 14:35 | MR ---
cc: Jared Finch MD, George MD DATE: 11/18/2017 PROCEDURE PERFORMED: Cardioversion. INDICATION: Atrial fibrillation with low ejection fraction. CONSENT: Full informed consent was obtained prior to the procedure. The risk of , bleeding, perforation, aspiration, foreseen and unforeseen complications were reviewed. The patient appeared to understand the risks. PROCEDURAL STATEMENT: The patient was draped in the usual manner. Anesthesia was given as per the Anesthesia Department. Full GEOVANNA was performed. Following this, 200 joule synchronized shock was carried out, which converted the patient from atrial fibrillation to sinus rhythm. CONCLUSION: Successful cardioversion from atrial fibrillation to sinus rhythm. Jared Finch MD HAJ/TL , 02:16 PM , 02:34 PM
--- NOTE | 2017-11-18 14:42 | CF ---
cc: Jared Finch MD, George MD DATE: 11/18/2017 PROCEDURE PERFORMED: Transesophageal echocardiogram. INDICATION: 1. Mitral regurgitation. 2. Cardiomyopathy. 3. Atrial fibrillation, for possible cardioversion. CONSENT: Fully informed consent was obtained prior to the procedure. The risks of , bleeding, myocardial infarction, perforation, aspiration, foreseen and unforeseen complications were reviewed. The risks of stroke, etc., were reviewed. Patient fully appeared to understand. PROCEDURAL STATEMENT: The patient underwent anesthesia as per the Anesthesia Department. A full GEOVANNA was performed. FINDINGS: The left atrial appendage is free of thrombus. The left atrium is mildly enlarged. Interatrial septum is intact. The right atrium is mildly enlarged. The tricuspid valve moves normally. Pulmonary valve appears to move normally. Doppler studies showed mild aortic regurgitation with a trileaflet aortic valve. Mild tricuspid regurgitation and mild pulmonic regurgitation. There was evidence of moderate mitral regurgitation. Overall LV function is reduced, estimated in the 30-40% range. CONCLUSION: 1. Transesophageal echocardiogram performed to 40 cm. 2. Aorta showed some mild plaquing, but no evidence of dissection, etc. 3. Left atrial appendage free of thrombus. 4. Moderate mitral regurgitation. 5. Reduced left ventricular ejection fraction. PLAN: Proceed with cardioversion. MD MINAL Pleitez/JUAQUIN , 02:15 PM , 02:41 PM
--- NOTE | 2017-11-19 16:46 | EKG ---
Date Performed: 11/18/2017 Time Performed: 10:59:38 PTAGE: 76 years EKG: Atrial fibrillation with rapid ventricular response. Leftward axis Possible left ventricula r hypertrophy Ant/septal and lateral ST-T changes are probably due to ventricular hypertrophy Abnorma l ECG PREVIOUS TRACING 09/30/17 Since the prior tracing, there has been some variation in the diffuse ST-T wave changes. DOCTOR: Tatianna Sylvester Interpretating Date/Time 11/19/2017 16:44:05
--- NOTE | 2017-11-19 16:46 | EKG ---
Date Performed: 11/18/2017 Time Performed: 13:42:38 PTAGE: 76 years EKG: Normal Sinus rhythm Possible faulty V2 - omitted from analysis Leftward axis Anterolateral T wave changes are nonspecifi c Abnormal ECG PREVIOUS TRACING : 11/18/2017 10.59 Since the prior tracing, the patient has converted to sinus rhythm, but there is otherwise no significant serial change. DOCTOR: Tatianna Sylvester Interpretating Date/Time 11/19/2017 16:44:39
== END 2017-11-18 15:08 | disposition home or self-care (01) ==
LOC: HDIC 10:31 → HSDC 10:31
PROVIDERS: ATTEND Internal Medicine Cardiovascular Disease
DX: I48.91 Unspecified atrial fibrillation (principal); I34.0 Nonrheumatic mitral (valve) insufficiency; I42.9 Cardiomyopathy, unspecified
CPT/HCPCS: 92960; 93005; 93312; 93320; 93325; J7040